=== PATIENT | female | born 1990 | race Caucasian/White ===

== ENCOUNTER 2017-04-23 22:19 | Outpatient (CLI) | payer BC ==
[~2017-04-23] VITALS: Ht 172.7 cm; Wt 72.3 kg
[~2017-04-23 22:19] MED LIST: PRENATAL1 TA7 PO
[2017-04-23 22:45] VITALS: BP 105/59; PULSE 67; TEMP 98
[2017-04-23 23:18] VITALS: BP 105/59; PULSE 67; TEMP 98
== END 2017-04-23 23:35 | disposition home or self-care (01) ==
LOC: LDRO 22:19
DX: O42.913 Preterm premature rupture of membranes, unspecified as to length of time between rupture and onset of labor, third trimester (principal); Z3A.28 28 weeks gestation of pregnancy

== ENCOUNTER 2017-06-02 09:40 | Inpatient (IN) | payer BC ==
[~2017-06-02] VITALS: Ht 172.7 cm; Wt 78.6 kg
[2017-07-08] VITALS (58 sets, daily range): BP systolic 97–145; BP diastolic 50–81; PULSE 61–105; TEMP 97.6–99.5
--- NOTE | 2017-07-08 07:00 | NUR ---
Patient ambulatory to unit accompanied by spouse for scheduled induction of labor. Gown on and patient resting in bed. FHR and TOCO monitors placed and explained. G1L0 39.3 weeks gestation. Patient states only complication of has been that baby is measuring small in weight, seen by MFM but no further concerns. Assessment completed. Consents signed. IV started in left hand at 0720 and LR infusing. Questions encouraged and answered. 0740: Pitocin started per orders. Call light in reach and at bedside.
[2017-07-08 08:41] LABS: BASO % 0.3 % (0.0-2.0); EOS # 0.2 (0.0-0.7); EOS % 1.5 % (0-4.0); GRAN # 9.1 (1.4-6.5); GRAN % 79.4 % (42.2-75.2); HEMATOCRIT 38.9 % (37.0-47.0); HEMOGLOBIN 13.2 g/dl (12.5-16.0); LYMPH # 1.6 (1.2-3.4); LYMPH % 13.7 % (20.0-51.0); MEAN CELL VOLUME 90 fl (80.0-100.0); MEAN CORPUSCULAR HEMOGLOBIN 31 pg (27.0-31.0); MEAN CORPUSCULAR HGB CONC 34 g/dl (33.0-37.0); MEAN PLATELET VOLUME 10.6 fl (7.4-10.4); MONO # 0.5 (0.1-0.6); MONO % 4.6 % (1.7-9.3); PLATELET COUNT 160 K/mm3 (130-400); RED BLOOD COUNT 4.32 M/mm3 (4.10-5.30); REDCELL DISTRIBUTION WIDTH-CV 13.1 % (11.5-14.5)
--- NOTE | 2017-07-08 09:00 | NUR ---
0900: Dr. Beverly to unit and reviews FHR and Contraction pattern on monitor since admission. To room and plan of care reviewed with patient and . 0915: SVE 1-2/-1 with AROM, moderate amount of clear fluid noted. FHR acceleration noted during AROM. Will continue to monitor.
--- NOTE | 2017-07-08 09:20 | NUR ---
0920: 2 late FHR decelerations noted down to 110-130 bpm lasting for 40-60 seconds. Patient repositioned to far right lateral. Dr. Beverly at nurses station and watching FHR monitor. Order to leave pitocin on and at current rate of 8mU at this time. Will remain at nurses station watching FHR.
[2017-07-08] MEDS ORDERED: PERCOCET 325 MG1 TA2 PO (09:53)
[2017-07-08] MEDS ORDERED: MOTRIN 800800 MG/TAB PO (09:53)
--- NOTE | 2017-07-08 10:15 | NUR ---
Dr. Beverly at nurses station and watching FHR and contraction pattern. Verbal order to continue with increasing pitocin per protocol.
--- NOTE | 2017-07-08 11:40 | NUR ---
1140: Patient sitting up at side of bed on birthing ball. Patient states she is feeling contractions but not uncomfortable.
--- NOTE | 2017-07-08 14:05 | NUR ---
Patient repositions self in bed and resting on hand and knees and swaying hips with contractions. Patient breathing heavier through contractions. 1415: Patient off monitors and up to bathroom to void. patient back to bed and monitors placed. patient tearful and states she would like an epidural at this time. Patient back in bed. SVE /-1. Jere Fleming CRNA in hospital and notified of patient request.
--- NOTE | 2017-07-08 14:45 | NUR ---
1445: Jere Fleming CRNA in room and epidural procedure explained to patient and . Patient repositioned and sitting up at side of bed. 1556: Epidural catheter placed. 1558: Test dose given, no reaction to test dose. 1505: Patient repositioned to far right lateral. See anesthesia records. Dr. Beverly at nurses station and reviews FHR and contraction pattern.
--- NOTE | 2017-07-08 15:05 | NUR ---
1506: Dr. Beverly in room. SVE 390/-1. FHR late deceleration down to 90 bpm. Patient repositioned to far left lateral. Dr. Beverly remains in room. LR bolus infusing. 1610: FHR late decelerations continue. Verbal order from Dr. Beverly to shut pitocin off and oxygen on via face mask. Patient repositioned and sitting straight up in bed. BP slight drop but patient denies feeling any symptoms of low blood pressure. Verbal order by Dr. Beverly to give 10mg Ephedrine. eJre Fleming CRNA gives Ephedrine 10mg IVP at 1517. 1525: BP 119/56. FHR late decelerations resolve. 1523: Dr. Beverly gives verbal order to restart pitocin at 10mU at 1543 if FHR reactive and no decelerations occuring.
--- NOTE | 2017-07-08 15:45 | NUR ---
1545: FHR reactive. Pitocin restarted at 10mU per Dr. Beverly verbal order. Oxygen off.
--- NOTE | 2017-07-08 15:50 | NUR ---
1550: Granado catheter placed using sterile technique. Granado catheter secured to patients inner left thigh. Patient tolerates well. FHR late deceleration down to 100 bpm occuring after Granado catheter placed. patient repositioned from left to right lateral. BP 109/53, patient denies feeling symptoms of low blood pressure. 1555: SVE 3-4/90/-[address] Beverly called and reviews FHR and contraction pattern from the office. Verbal order to give Ephedrine 10mg and reposition patient, leave pitocin on. 1558:10mg Ephedrine given IVP. Patient repositioned and sitting straight up in bed. FHR decelerations resolve at 1605. Will continue to monitor. Bp at 1605: 129/69, pulse 66.
--- NOTE | 2017-07-08 17:00 | NUR ---
Recurrent late FHR decelerations down to 100-110 bpm, accelerations present and moderate variability. Dr. Beverly notified. 1700: Jere Fleming CRNA consulted about patient blood pressure, 113/62, patient comfortable but FHR late decelerations occuring. Order to give 10mg Ephedrine. 1705: Ephedrine 10mg IVP given and patient repositioned to far right lateral.
--- NOTE | 2017-07-08 17:30 | NUR ---
Dr. Beverly watching FHR and Contraction pattern. Order to continue increasing pitocin.
--- NOTE | 2017-07-08 17:55 | NUR ---
1753: Ephedrine given for BP 105/55, repeat at 1755: 120/58. Dr. Beverly on unit and to patient room to discuss plan of care. SVE /-1. Verbal order to continue to increase pitocin.
--- NOTE | 2017-07-08 18:30 | NUR ---
Report to Ozzie Hernandez RN. Patient resting comfortably at this time.
--- NOTE | 2017-07-08 18:30 | NUR ---
bedspedroe report done
--- NOTE | 2017-07-08 20:30 | NUR ---
DR CARO HERE- BED APRAT TO PUSH- ARACELI WASH FOR DELIVERY PUSHES WELL- SPOUSE AND MOTHER AT BEDSIDE. 2035 MALE- TO MOTHERS ABDOMEN
--- NOTE | 2017-07-08 20:44 | NUR ---
EMESIS MODERATE AMT INTO TRASH CAN
--- NOTE | 2017-07-08 23:30 | NUR ---
ATTEMPTS TO RISE FROM BED- UNABLE LEGS NOT SUPPORTIVE. SEATED ONTO BED-FAMILY VISITS
--- NOTE | 2017-07-09 01:05 | NUR ---
ABLE TO RAISE LEGS FROM BED. ASSIST TO BR WITH NURSE AND . VOIDS- TO 216 PER WC AFTER PERICARE REVIEWED , BABY WITH PARENTS
[2017-07-09 03:26] VITALS: BP 108/58; PULSE 71; TEMP 99.3
[2017-07-09 08:30] VITALS: BP 117/72; PULSE 80; TEMP 98.1
--- NOTE | 2017-07-09 09:53 | NUR ---
Initial visit; Hse Manager offered congratulations to Dad and grandparents on the of their baby boy. Mom was indisposed.
[2017-07-09 16:00] VITALS: BP 107/70; PULSE 81; TEMP 97.9
[2017-07-09 22:37] VITALS: BP 116/67; PULSE 67; TEMP 98.8
[2017-07-10 08:22] VITALS: BP 117/64; PULSE 76; TEMP 97.4
== END 2017-07-10 14:50 | disposition home or self-care (01) | DRG 775 ==
LOC: OB 07-08 06:55 → LDR 07-08 06:55 → OB 07-08 11:36 → LDRO 07-12 09:39 → EDSTATUS 07-12 11:35 → LDRO 07-12 12:18
PROVIDERS: ADMIT Obstetrics & Gynecology
PROC: 10E0XZZ Delivery of Products of Conception, External Approach (ICD-10-PCS; principal; 2017-07-08)
PROC: 0KQM0ZZ Repair Perineum Muscle, Open Approach (ICD-10-PCS; 2017-07-08)
PROC: 3E033VJ Introduction of Other Hormone into Peripheral Vein, Percutaneous Approach (ICD-10-PCS; 2017-07-08)
DX: O36.5930 Maternal care for other known or suspected poor fetal growth, third trimester, not applicable or unspecified (principal); O75.89 Other specified complications of labor and delivery; O70.1 Second degree perineal laceration during delivery; O69.82X0 Labor and delivery complicated by other cord entanglement, without compression, not applicable or unspecified; Z3A.39 39 weeks gestation of pregnancy; Z37.0 Single live birth
CPT/HCPCS: J2210; J2400; J2590; J2795; J7120